=== PATIENT | female | born 1940 | race Caucasian/White ===

== ENCOUNTER 2024-03-19 09:16 | Emergency (ER) | payer BC, SELFPAY ==
[2024-03-19 09:21] VITALS: BP 128/97
[2024-03-19 10:26] VITALS: BMI 36.2
--- NOTE | 2024-03-19 10:26 | ED.GENMED ---
History of Present Illness
<Bree Pettit PA-C - Last Filed: 03/19/24 14:14>
General
Chief Complaint: Extremity Pain (non-traumatic)
Source: patient
Exam Limitations: none
Time Seen by Provider: 03/19/24 10:23
Nursing documentation reviewed up to this point in time: agreed with
History of Present Illness
History of Present Illness:
83-year-old female with past flexor diabetes presents emergency department today with concerns of right foot pain since this morning. Patient reports that she has intermittent pains in her foot as a result of her neuropathy but she has never had
pain like this before. She states that the pain woke her up at night and she could barely walk without significant pain. She reports that she did not fall or twist her ankle. She reports that she has been taking Tylenol without much relief. She
denies any calf pain, any shortness of breath. She denies any loss of sensation, pallor.
Review of Systems
<Bree Pettit PA-C - Last Filed: 03/19/24 14:14>
Review of Systems
All Other Systems: ROS reviewed and negative except as documented in HPI and ROS
Phy Exam
<Bree Pettit PA-C - Last Filed: 03/19/24 14:14>
Physical Exam
Physical Exam:
General: Patient is well appearing and in no acute distress; non-toxic
Skin: Warm and dry, no rashes or lesions
Head: Normocephalic, atraumatic
Eyes: Sclera non-icteric. EOMs intact.
Cardiac: Regular rate
Peripheral Vascular: No lower extremity swelling or edema, 2+ dp and pt pulses on the right
Pulm: Normal respiratory effort
Musculoskeletal: Tenderness to palpation on the dorsum of the right foot nonfocal, no palpable bony deformities, no pain with passive range of motion of the ankle
Neuro: CN II-XII intact, no focal neurologic deficits.
Psychiatric: Appropriate mood and affect.
Course
<Bree Pettit PA-C - Last Filed: 03/19/24 14:14>
Orders/Labs/Results
Orders:
Orders
03/19/24 10:36
CR Foot - Right Min 3 Views Urgent
Reason For Exam: foot pain
03/19/24 11:02
CPK [Creatine Phosphokinase] Urgent
Comprehensive Metabolic Panel Urgent
Abnormal Lab Results
03/19/24
11:02
BUN 20 H mg/dl
(7-17)
Glucose 143 H mg/dl
(70-99)
03/19/24 11:02
Vital Signs
Initial and Last Documented VS:
Initial Vital Signs
Temp Pulse Resp Pulse Ox
98.4 F 85 16 97
03/19/24 09:18 03/19/24 09:18 03/19/24 09:18 03/19/24 09:18
Last Documented Vital Signs
Temp Pulse Resp BP Pulse Ox
98.4 F 78 18 122/74 99
03/19/24 09:18 03/19/24 12:55 03/19/24 12:55 03/19/24 12:55 03/19/24 12:55
<Mic Elizabeth DO - Last Filed: 03/19/24 11:51>
Orders/Labs/Results
Orders:
Orders
03/19/24 10:36
CR Foot - Right Min 3 Views Urgent
Reason For Exam: foot pain
03/19/24 11:02
CPK [Creatine Phosphokinase] Urgent
Comprehensive Metabolic Panel Urgent
Abnormal Lab Results
03/19/24
11:02
BUN 20 H mg/dl
(7-17)
Glucose 143 H mg/dl
(70-99)
03/19/24 11:02
Vital Signs
Initial and Last Documented VS:
Initial Vital Signs
Temp Pulse Resp Pulse Ox
98.4 F 85 16 97
03/19/24 09:18 03/19/24 09:18 03/19/24 09:18 03/19/24 09:18
Last Documented Vital Signs
Temp Pulse Resp BP Pulse Ox
98.4 F 78 18 122/74 99
03/19/24 09:18 03/19/24 12:55 03/19/24 12:55 03/19/24 12:55 03/19/24 12:55
Sunshinelt;Bree Pettit PA-C - Last Filed: 03/19/24 14:14>
MDM/Problems Addressed
Differential Diagnosis Includes:
see below
MDM/Problems Addressed:
NUMBER AND COMPLEXITY OF PROBLEMS ADDRESSED AT THE ENCOUNTER
� Chronic conditions affecting care: diabetes,
� Acute Exacerbation and/or Progression of Chronic Illness:
� Differential Diagnosis includes: diabetic neuropathy, metatarsal fracture, ankle sprain
AMOUNT AND/OR COMPLEXITY OF DATA TO BE REVIEWED AND ANALYZED
� I performed an independent evaluation of and my interpretation is:
X-rays:
Laboratory Studies:
Other:
� Review of other/old records: No previous ER physician documentation to review, no hospital discharge summaries to review
� Clinical information was obtained by an independent historian: daughter present who also provided history
� Prescriptions/Medications Considered but not given: none
� Further testing considered but not performed:
RISK OF COMPLICATIONS AND/OR MORBIDITY OR MORTALITY OF PATIENT MANAGEMENT
� Social determinants of health affecting care: none
� Discussion with other providers: ER attending
� Escalation of care including admission/observation vs risk of discharge considered:
83 y/o female presents to the emergency department with atraumatic foot pain since the middle of the night. Seems different than patient's existing diabetic neuropathy. On physical exam she has tenderness to the dorsum of the foot but no bony
deformity. She does use a statin, will check liver function tests and cpk.
CPK and LFTs normal. X-ray is negative for fracture/significant arthritic changes. Patient stable for discharge.
<Bree Pettit PA-C - Last Filed: 03/19/24 14:14>
*Pulse Oximetry
Patient hypoxic: no
*Critical Care Note
Total Time (30-74mins, 75-104mins- exclusive of procedures): Not Applicable
ED Attending Note
<Bree Pettit PA-C - Last Filed: 03/19/24 14:14>
-
Portions of this chart may have been created with voice recognition software.� Occasional wrong word or��sound alike� substitutions may have occurred due to the inherent limitations of voice recognition software.
<Mic Elizabeth DO - Last Filed: 03/19/24 11:51>
ED Attending Note
Patient seen and examined by attending physician: Yes
I performed the substantive portion of visit, reviewed & personally made and approve the management plan that is documented in note by myself or SONAL.: Yes
ED Attending Note:
Patient is a 3-year-old female who had sudden onset of right foot pain this morning at 4 AM when she got up to go the bathroom. Patient denies any injury. Patient has difficulty weightbearing on it. Patient denies fever or chills. Patient does
have a longstanding history of neuropathy and takes gabapentin at night. Patient is to take gabapentin twice a day but she states she has to be clearheaded during the day for her . Patient denies any rashes. On physical exam patient does
have some atrophy of the right calf and tenderness from the right ankle to the dorsum of the right foot with mild swelling and erythema. Does not appear infectious. Patient has good perfusion. Will check the patient's labs. At this point the
x-ray does not show a reason. Will check labs. Probably inflammatory with an etiology to be determined. Would prefer not to start steroids on the patient due to her diabetes and age.
Discharge Plan
Departure
Patient Disposition: Home (Routine Discharge)
Date of Disposition: 03/19/24
Time of Disposition: 12:32
Patient with high blood pressure during this ER visit?: Yes
Condition: Good
Discharge Problem:
Acute foot pain, Osteoarthritis
Instructions: Foot sprain, RICE Therapy
Prescriptions:
New
hydrocodone-acetaminophen 5-300 mg tablet
1 tab PO Q6H Qty: 8 0RF
No Action
atorvastatin 10 mg tablet
10 mg PO HS
glyburide 2.5 mg tablet
5 mg PO DAILY
cyanocobalamin (vitamin B-12) [Vitamin B-12] 1,000 mcg Tablet
1,000 mcg PO DAILY
meclizine 12.5 mg tablet
12.5 mg PO TIDPRN PRN (Reason: vertigo)
aspirin 81 mg Tablet,Delayed Release (Dr/Ec)
81 mg PO HS
acetaminophen [Tylenol Extra Strength] 500 mg Tablet
1,000 mg PO Q6H PRN (Reason: mild pain)
alprazolam 0.25 mg tablet
0.25 mg PO DAILYPRN PRN (Reason: anxiety)
amlodipine-benazepril 5-10 mg capsule
1 cap PO HS
metformin 1,000 mg tablet
1,000 mg PO DAILY
clotrimazole-betamethasone 1-0.05 % cream
1 applic TOPICAL DAILYPRN PRN (Reason: under breast rash)
gabapentin 300 mg Capsule
300 mg PO HS
omeprazole 20 mg capsule,delayed release(DR/EC)
20 mg PO HS
cholecalciferol (vitamin D3) [Vitamin D3] 125 mcg (5,000 unit) Tablet
125 mcg PO DAILY
Jardiance 25 mg tablet
25 mg PO HS
Referrals:
Ke Villafana MD [Family Provider] -
Activity Restrictions/Additional Instructions:
Please keep your foot elevated at home and compressed with TANO wrap. You can take one vicodin every 6 hours as needed for pain.
PLEASE RETURN TO EMERGENCY DEPARTMENT SHOULD YOU EXPERIENCE CHEST PAIN, SHORTNESS OF BREATH, LOSS OF SENSATION IN YOUR FOOT, PALLOR, INCREASING PAIN, NO SIGNS OR SYMPTOMS CONCERNING TO YOU.
Please follow-up with your primary care provider
Interventions
Interventions:
*Risk Screen - Suicide Last Done: 03/19/24 09:25
*Neglect/Abuse Screening Last Done: 03/19/24 09:25
*ED COVID-19 Vaccine History Last Done: 03/19/24 09:22
*Nursing Disposition Last Done: 03/19/24 12:39
ED-Skin Assessment Last Done: 03/19/24 10:26
ED-Peripheral Vascular Assessment Last Done: 03/19/24 10:28
ED-Musculoskeletal Assessment Last Done: 03/19/24 10:26
Discharge Date and Time
Discharge Date/Time: 03/19/24 13:12
Print Language: MALAY
[2024-03-19 11:56] LABS: ALT (SGPT) 17 U/L (0-35); AST (SGOT) 21 U/L (14-36); Albumin 4.1 g/dl (3.5-5.0); Alkaline Phosphatase 65 U/L (38-126); Blood Urea Nitrogen 20 mg/dl (7-17); Carbon Dioxide 24 mmol/L (22-30); Chloride 105 mmol/L (98-107); Creatine Phosphokinase 92 U/L (30-135); Estimated Creatinine Clearance 49 ml/min; Glucose 143 mg/dl (70-99); Potassium 4.2 mmol/L (3.5-5.1); Sodium 139 mmol/L (135-145); Total Bilirubin 0.3 mg/dl (0.2-1.3); Total Protein 7.1 g/dl (6.3-8.2)
[2024-03-19 12:55] VITALS: BP 122/74
== END 2024-03-19 13:12 | disposition home or self-care (01) ==
LOC: EMR 09:16
PROVIDERS: Physician Assistant; EMERGENCY PHYSICIAN Emergency Medicine; FAMILY PHYSICIAN Internal Medicine
DX: M19.071 Primary osteoarthritis, right ankle and foot (principal); M79.671 Pain in right foot; R03.0 Elevated blood-pressure reading, without diagnosis of hypertension
CPT/HCPCS: 99284; 73630; 80053; 82550